=== PATIENT | female | born 1940 | race Caucasian/White ===

== ENCOUNTER → 2018-05-01 | Outpatient (REF) | payer MEDICARE, OTHER | LOC: M LAB REF 12:58 | DX: N39.0 Urinary tract infection, site not specified (principal) | CPT/HCPCS: 87186 ==

== ENCOUNTER → 2019-05-22 | Outpatient (REF) | payer MEDICARE, OTHER | LOC: M LAB REF 17:06 | PROVIDERS: ATTEND Nurse Practitioner Family | DX: N39.0 Urinary tract infection, site not specified (principal) ==

== ENCOUNTER → 2019-09-07 | Outpatient (REF) | payer MEDICARE, OTHER | LOC: M LAB REF 17:07 | PROVIDERS: ATTEND Nurse Practitioner Family | DX: N39.0 Urinary tract infection, site not specified (principal) ==

== ENCOUNTER → 2019-09-13 | Outpatient (CLI) | payer MEDICARE, BC, OTHER ==
--- NOTE | 2019-09-13 11:17 | REP ---
Renal Vascular Doppler Ultrasound: Right Kidney: Renal length 10.0 cm. Extraparenchymal renal artery. Peak renal artery flow velocity the 157 cm/ sec Peak aortic velocity: 82.8 cm/sec Renal/aortic ratio: 1.9 Intraparenchymal renal arteries. Resistive index: upper pole 0.76 mid pole 0.75 lower pole 0.72. The Acceleration time: upper pole 0.12 mid pole 0.09 lower pole 0.10 Left kidney: Renal length 10.5 cm. Extraparenchymal renal artery: Peak renal artery flow velocity: 116 cm/sec. Peak aortic velocity: 82.8 cm/sec Renal/aortic ratio: 1.4 Intraparenchymal renal arteries: Resistive index: Upper pole 0.73 mid pole 0.8 is a lower pole 0.86 Acceleration time: Upper pole 0.06 mid pole 0.07 lower pole 0.06. The Impression: There is no evidence of stenosis in the extrarenal renal arteries on the right or left. The resistive indices are elevated [n the parenchymal renal arteries bilaterally, likely a consequence of the chronic renal disease. The acceleration times are lengthened in the parenchymal arteries of the right kidney and borderline lengthened the left kidney, likely from the chronic renal disease. Bilateral renal ultrasound: The right kidney measures 10.0 x 5.1 x 4.3 cm. Left kidney measures 10.5 x 5.3 x 5.8 cm. The kidneys are normal size. Renal cortical echogenicity is normal bilaterally. There is no hydronephrosis on the right on the left. There are no renal calculi. There are no solid or cystic renal masses. Bladder: The bladder is collapsed and cannot be further evaluated. Electronically Signed by Ricky Gonsales MD 09/13/2019 11:09 A
== END ==
LOC: M RAD 08:53
PROVIDERS: ATTEND Nurse Practitioner Family
DX: N18.3 Chronic kidney disease, stage 3 (moderate) (principal); N32.89 Other specified disorders of bladder; R94.4 Abnormal results of kidney function studies

== ENCOUNTER → 2021-02-09 | Outpatient (REF) | payer MEDICARE, BC, OTHER ==
[2021-02-10 08:45] LABS: TOTAL PROTEIN 24 HOUR URINE 1457.5 MG/24HR (50-150); URINE TOTAL PROTEIN 291.5 MG/DL (0-12)
== END ==
LOC: M LAB REF 16:56
PROVIDERS: ATTEND Nurse Practitioner Family
DX: R80.9 Proteinuria, unspecified (principal); N17.9 Acute kidney failure, unspecified

== ENCOUNTER → 2021-03-04 | Outpatient (REF) | payer MEDICARE, BC, OTHER | LOC: M LAB REF 17:25 | PROVIDERS: ATTEND Nurse Practitioner Family | DX: E83.42 Hypomagnesemia (principal) ==

== ENCOUNTER → 2021-09-18 | Outpatient (REF) | payer MEDICARE, BC, OTHER | LOC: M LAB REF 16:51 | PROVIDERS: ATTEND Nurse Practitioner Family | DX: E83.42 Hypomagnesemia (principal) ==